=== PATIENT | female | born 1965 | race Caucasian/White ===

== ENCOUNTER 2024-08-22 20:31 | Emergency (ER) | payer OTHER, SELFPAY ==
[2024-08-22 20:32] VITALS: BMI 31.1
[2024-08-22 20:37] VITALS: BP 163/103
[2024-08-22 21:07] LABS: % Basophils 0.8 % (0-2); % Eosinophils 3.5 % (0-6); % Immature Granulocytes 0.2 % (0-0.5); % Lymphocytes 45.6 % (20.5-51.1); % Monocytes 10.9 % (1.7-9.3); Absolute Basophils 0.1 10^3/uL (0-0.2); Absolute Eosinophils 0.2 10^3/uL (0-0.7); Absolute Lymphocytes 2.7 10^3/uL (1.2-3.4); Absolute Monocytes 0.7 10^3/uL (0.1-0.6); Absolute Neutrophils 2.3 10^3/uL (1.4-6.5); Hematocrit 42.1 % (37.0-47.0); Hemoglobin 14.2 g/dL (12.0-16.0); Mean Corp Hgb Conc. 33.7 g/dL (33.0-37.0); Mean Corpuscular Hgb 29.8 pg (27.0-31.0); Mean Corpuscular Volume 88.4 fL (81.0-99.0); Mean Platelet Volume 9.4 fL (7.4-10.4); Nucleated Red Blood Cells % 0 %; Platelet Count 295 10^3/uL (130-400); Red Blood Cell Count 4.76 10^6/uL (4.20-5.40); Red Cell Dist. Width 12.5 % (11.5-14.5)
[2024-08-22 21:19] LABS: ALT (SGPT) 27 U/L (0-35); AST (SGOT) 28 U/L (14-36); Albumin 4.6 g/dl (3.5-5.0); Alkaline Phosphatase 93 U/L (38-126); Blood Urea Nitrogen 21 mg/dl (7-17); Calcium 9.6 mg/dl (8.4-10.2); Carbon Dioxide 28 mmol/L (22-30); Chloride 103 mmol/L (98-107); Glucose 112 mg/dl (70-99); Potassium 4.1 mmol/L (3.5-5.1); Sodium 138 mmol/L (135-145); Total Bilirubin < 0.1 mg/dl (0.2-1.3); Total Protein 7.1 g/dl (6.3-8.2); eGFR > 60.00
[2024-08-22 21:31] LABS: Troponin I < 0.012 ng/ml
[2024-08-23] VITALS (12 sets, daily range): BP systolic 114–152; BP diastolic 69–92
--- NOTE | 2024-08-23 01:33 | ED.GENMED ---
History of Present Illness
General
Chief Complaint: Chest Pain
Source: patient and spouse
Time Seen by Provider: 08/23/24 01:04
Nursing documentation reviewed up to this point in time: agreed with
History of Present Illness
History of Present Illness:
Pleasant 58-year-old female presents emerged department with intermittent chest pressure. She states that today around 6 PM she felt lightheaded and had some left arm tingling. Patient does report that she has had this pressure sensation off and
on for the last few days. Yesterday she states that she did her normal workout on the treadmill and did feel lightheaded while doing so. Patient states that nothing alleviates or exacerbates the pain. She feels that the treadmill exercise did not
reproduce the symptoms exactly she states that she had the lightheadedness without the pressure. Tonight around 8 PM she took 2 aspirin and decided to come into the emergency department. She does report some minor pressure at this time.
Phy Exam
General Physical Exam
General Presentation: well appearing and no apparent distress
General Skin: warm and dry
General Habitus: normal
General Mental: alert
General Hydration: appears well hydrated
ENT Exam
ENT Exam: EOMI, pharynx normal, neck supple and normocephalic
Eye Exam
Eye Exam: PERRL, cornea clear and conjunctiva normal
Cardiovascular Exam
Cardiovascular Exam: regular rate/rhythm, no edema, no murmur and normal peripheral pulses
Pulmonary Exam
Pulmonary Exam: lungs clear, no respiratory distress, no rales, no crackles, no rhonchi, no stridor, no wheezing and no cough
Gastrointestinal Exam
Gastrointestinal Exam: normal bowel sounds, non tender, soft, no organomegaly, no pulsatile mass and non distended
Neurological Exam
Neurological Exam: alert, oriented x3, no motor deficits and speech normal
Musculoskeletal Exam
Musculoskeletal Exam: full ROM and no edema
Skin Exam
Skin Exam: normal color, warm/dry, no rash and no petechia
Psychiatric Exam
Psychiatric Exam: normal mood/affect
Scores
Heart Score for Chest Pain Patients
STEMI patient?: No
History: Highly Suspicious
ECG: Normal
Age: >45 - <65 years
Risk Factors: No Risk Factors
Troponin: >1 - <3 x Normal Limit
Heart Score for Chest Pain Patients: 4
Heart Score Risk: 20.3% MACE over next 6 weeks
Course
Orders/Labs/Results
Orders:
Orders
08/22/24 20:32
Electrocardiogram (*1) Urgent
Reason for Study: Chest Pain
EKG- Treatment ONCE
08/22/24 20:55
Complete Blood Count/With Diff Urgent
Comprehensive Metabolic Panel Urgent
Troponin I Urgent
08/23/24 01:31
Electrocardiogram (*1) Urgent
Reason for Study: Chest Pain
EKG- Treatment ONCE
08/23/24 01:35
Nitroglycerin Ointment [Nitro-Bid] 1 inch TOPICAL NOW STA
08/23/24 02:05
Troponin I Urgent
Comment: REDRAW
08/23/24 02:22
Add On- LAB Urgent
Tests Added?: ddimer
08/23/24 02:54
D-Dimer Urgent
08/23/24 04:11
CR Chest - 2 Views Urgent
Comment:
Reason For Exam: cp
Abnormal Lab Results
08/22/24
20:55
Absolute Monos (auto) 0.7 H 10^3/uL
(0.1-0.6)
Neutrophils % 39.0 L %
(42.2-75.2)
Monocytes % 10.9 H %
(1.7-9.3)
BUN 21 H mg/dl
(7-17)
Glucose 112 H mg/dl
(70-99)
Total Bilirubin < 0.1 L mg/dl
(0.2-1.3)
08/22/24 20:55
08/22/24 20:55
Vital Signs
Initial and Last Documented VS:
Initial Vital Signs
Temp Pulse Resp BP Pulse Ox
97.4 F 82 20 163/103 100
08/22/24 20:37 08/22/24 20:37 08/22/24 20:37 08/22/24 20:37 08/22/24 20:37
Last Documented Vital Signs
Temp Pulse Resp BP Pulse Ox
97.4 F 77 20 114/69 99
08/22/24 20:37 08/23/24 04:00 08/23/24 04:00 08/23/24 04:00 08/23/24 04:29
*Radiology
Radiology exam reviewed: all reviewed NAD by ED Provider
*Critical Care Note
Total Time (30-74mins, 75-104mins- exclusive of procedures): Not Applicable
ED Attending Note
-
Portions of this chart may have been created with voice recognition software.� Occasional wrong word or��sound alike� substitutions may have occurred due to the inherent limitations of voice recognition software.
Discharge Plan
Departure
Patient Disposition: Home (Routine Discharge)
Date of Disposition: 08/23/24
Time of Disposition: 04:27
Patient with high blood pressure during this ER visit?: Yes
Condition: Good
Discharge Problem:
Chest pain
Instructions: Chest Pain CBC Follow Up
Referrals:
[facility]- [facility] [Provider Group]
UNKNOWN - PT DOES,NOT KNOW [Family Provider] -
Activity Restrictions/Additional Instructions:
It was a pleasure meeting you and taking part in your care. We hope for your continued healing and wellness.
Please read discharge instructions in their entirety. However, they are for general education and may not describe your exact diagnosis at discharge. Information on your ER visit and medical conditions were discussed with you along with appropriate
follow up information...
If indicated, please take your medications as instructed and indicated on discharge paperwork.
Please schedule a follow up appointment as directed. Call to schedule an appointment
Please return to the emergency department with ANY change in, persisting, or worsening of symptoms. If any of your symptoms do not improve, or persist, or become more severe within 6-12 hours, please return to the emergency department for further
care.
Please return to the emergency department if you develop a headache, neck pain/stiffness, fever greater than 100.4F, chest pain, shortness of breath, persistent nausea, vomiting, slurred speech, difficulty walking, numbness/tingling, weakness, signs
of infection or any other symptoms that are worrisome to you.
If you have any questions or concerns please do not hesitate to call the Hospital at or E-mail me directly at [email or web address]
Interventions
Interventions:
*Risk Screen - Suicide Last Done: 08/23/24 00:09
*General Assessment Last Done: 08/23/24 00:09
*Neglect/Abuse Screening Last Done: 08/23/24 00:09
ED- Fall Risk Assessment Last Done: 08/23/24 00:12
*ED COVID-19 Vaccine History Last Done: 08/23/24 00:09
*Nursing Disposition Last Done: 08/23/24 04:34
ED- Cardiac Assessment Last Done: 08/23/24 00:08
Discharge Date and Time
Discharge Date/Time: 08/23/24 04:35
Print Language: IRISH
[2024-08-23] MEDS: NITRO-BID TOPICAL (01:48)
[2024-08-23] MEDS: NITRO-BID 1 INCH TOPICAL (02:19)
[2024-08-23 02:37] LABS: Troponin I < 0.012 ng/ml
[2024-08-23 03:16] LABS: D-Dimer < 0.27 ug/mlFEU (0.00-0.50)
== END 2024-08-23 04:35 | disposition home or self-care (01) ==
LOC: EMR 20:31
PROVIDERS: Emergency Medicine; EMERGENCY PHYSICIAN Student in an Organized Health Care Education/Training Program
DX: R07.89 Other chest pain (principal)
CPT/HCPCS: 99283; 71046; 80053; 84484; 85025; 85379; 93005

== ENCOUNTER → 2024-09-17 14:56 | Outpatient (REF) | payer OTHER, SELFPAY | LOC: HWRCS 14:56 | PROVIDERS: ATTENDING PHYSICIAN Internal Medicine Cardiovascular Disease; FAMILY PHYSICIAN Registered Nurse | DX: R00.2 Palpitations (principal); R42 Dizziness and giddiness; R07.89 Other chest pain | CPT/HCPCS: 93306 ==

== ENCOUNTER → 2024-09-21 07:35 | Outpatient (REF) | payer OTHER, SELFPAY | LOC: RCS 07:35 | PROVIDERS: ATTENDING PHYSICIAN Internal Medicine Cardiovascular Disease; FAMILY PHYSICIAN Registered Nurse | DX: R00.2 Palpitations (principal); R42 Dizziness and giddiness; R07.89 Other chest pain | CPT/HCPCS: 93017 ==